=== PATIENT | female | born 1995 | race Caucasian/White ===

== ENCOUNTER 2025-07-19 13:15 | Emergency (ER) | payer BC, SELFPAY ==
[2025-07-19 13:27] VITALS: BP 112/82; PULSE 88; RESP 16; TEMP 36.6; O2SAT 98
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
== END 2025-07-19 13:50 | disposition home or self-care (01) ==
PROVIDERS: Emergency Provider Nurse Practitioner Family
DX: S01.81XA Laceration without foreign body of other part of head, initial encounter (principal); W22.8XXA Striking against or struck by other objects, initial encounter
CPT/HCPCS: 12011; 99212; G0463